=== PATIENT | male | born 1955 | race Two or more races ===

== ENCOUNTER 2021-10-13 09:52 | Emergency (ER) | payer OTHER ==
[~2021-10-13] VITALS: Ht 157.5 cm; Wt 72.6 kg
--- NOTE | 2021-10-13 10:01 | NUR ---
TO ER BED 6, [id number] C/O ABDOMINAL PAIN AND COUGH, TESTED POSITIVE AT URGENT CARE TODAY, SATTING AT 98% ROOM AIR, AAOX3, CONNECTED TO MONITOR, AWAITNG MD ORDERS
--- NOTE | 2021-10-13 10:17 | NUR ---
DR REYES AT BEDSIDE
--- NOTE | 2021-10-13 10:19 | NUR ---
URINE COLLECTED AND SENT TO LAB
--- NOTE | 2021-10-13 10:25 | NUR ---
IV LINE IS ESTABLISHED, BLOOD SPECIMEN COLLECTED AND SENT TO THE LAB. THE LINE IS SALINE LOCKED.
[2021-10-13] MEDS ORDERED: IV NS 0.9% 1,000 ML BAG IV ONE (10:30)
[2021-10-13] MEDS ORDERED: IV NS 0.9% 1,000 ML IV ONE (10:30)
--- NOTE | 2021-10-13 10:31 | NUR ---
covid swab done and sent to the lab
--- NOTE | 2021-10-13 10:38 | NUR ---
TAKEN TO CT
--- NOTE | 2021-10-13 10:46 | NUR ---
THE PATIENT IS BACK FROM CT
[2021-10-13 10:47] LABS: BASOPHILS # (AUTO) 0.1 K/uL (0.0-0.2); BASOPHILS % (AUTO) 0.5 % (0.0-2.0); EOSINOPHILS % (AUTO) 0.6 % (0.0-6.0); HEMATOCRIT 44 % (39-51); HEMOGLOBIN 14.1 g/dL (13.5-17.5); LYMPHOCYTES % (AUTO) 15.4 % (20.0-44.0); MEAN CORPUSCULAR HGB CONC 32 g/dl (31.0-36.0); MEAN CORPUSCULAR VOLUME 89 fL (80-96); MONOCYTES # (AUTO) 0.6 K/uL (0.1-1.30); NEUTROPHILS # (AUTO) 10.2 K/uL (1.8-8.9); NEUTROPHILS % (AUTO) 78.5 % (43.0-81.0); PLATELET COUNT (AUTO) 407 K/uL (150-450); RED BLOOD CELL COUNT(AUTO) 4.89 MIL/uL (4.5-6.0); WHITE BLOOD COUNT (AUTO) 12.9 K/uL (4.3-11.0)
[2021-10-13 10:56] LABS: BILIRUBIN,URINE SMALL (NEGATIVE); COLOR,URINE YELLOW (YELLOW); LEUKOCYTE ESTERASE ,URINE NEGATIVE (NEGATIVE); NITRITE, URINE NEGATIVE (NEGATIVE); PROTEIN,URINE 100 mg/dl (NEGATIVE); UGLUCOSE NEGATIVE (NEGATIVE); UROBILINOGEN,URINE 0.2 EU/dL (0.2)
[2021-10-13] MEDS ORDERED: KETOROLAC TROMETHAMINE 15 MG/ML VIAL ONE (10:56)
[2021-10-13] MEDS ORDERED: KETOROLAC TROMETHAMINE INJ 30 MG/ML VIAL IV ONE (11:00)
[2021-10-13 11:01] LABS: D-DIMER 1.11 mg/L(FEU (0.17-0.50)
[2021-10-13 11:06] LABS: BACTERIA,URINE None seen /HPF (None Seen); RBC,URINE 0-2 /HPF (0-2); SQUAMOUS EPITHELIAL CELL,UR Rare /HPF (None Seen); WBC,URINE NONE SEEN /HPF (0-3)
[2021-10-13 11:12] LABS: ALANINE AMINOTRANSFERASE 58 U/L (12-78); ALBUMIN 4.7 g/dL (3.4-5.0); ALKALINE PHOSPHATASE 112 U/L (46-116); ASPARTATE AMINOTRANSFERASE 54 U/L (15-37); BILIRUBIN,DIRECT 0.2 mg/dL (0.0-0.2); BILIRUBIN,TOTAL 0.6 mg/dL (0.2-1.0); CALCIUM, SERUM 10.7 mg/dL (8.5-10.1); CARBON DIOXIDE 21 mmol/L (21-32); CHLORIDE 97 mmol/L (98-107); CREATININE 2.7 mg/dL (0.6-1.3); GLUCOSE 223 mg/dL (74-106); LIPASE 232 U/L (73-393); POTASSIUM 4.7 mmol/L (3.5-5.1); SODIUM SERUM 132 mmol/L (136-145); TOTAL PROTEIN, SERUM 9.9 g/dL (6.4-8.2); UREA NITROGEN, BLOOD 49 mg/dL (7-18)
[2021-10-13 11:31] LABS: CREATINE KINASE, TOTAL 155 U/L (39-308); FERRITIN 54 ng/mL (8-388)
[2021-10-13 11:32] LABS: C-REACTIVE PROTEIN < 0.2 mg/dL (0.0-0.9)
[2021-10-13] MEDS ORDERED: FLUT16SP16 (11:32)
[2021-10-13] MEDS ORDERED: LATA2.5D15 EACHEYE (11:32)
[2021-10-13] MEDS ORDERED: LISI10TA29 PO (11:32)
[2021-10-13] MEDS ORDERED: ALBU8.5H8 IH (11:32)
[2021-10-13] MEDS ORDERED: POLY15DR40 EACHEYE (11:32)
[2021-10-13] MEDS ORDERED: PYRI-6 PO (11:32)
[2021-10-13] MEDS ORDERED: OMEP40CA21 PO (11:32)
[2021-10-13] MEDS ORDERED: INSU100I26 SQ (11:32)
[2021-10-13] MEDS ORDERED: METF-442 PO (11:32)
--- NOTE | 2021-10-13 12:00 | NUR ---
FOR DR SRINIVAS PEDERSON REPORT TO CALL [phone] (DR HORNER)
--- NOTE | 2021-10-13 12:01 | NUR ---
EDGER OPERATOR KALLIE [phone]
[2021-10-13 13:00] VITALS: BP 143/63
== END 2021-10-13 13:22 | disposition left against medical advice (07) ==
LOC: ER 09:57
DX: A41.89 Other specified sepsis (principal); N17.9 Acute kidney failure, unspecified; R00.0 Tachycardia, unspecified; Z20.822 Contact with and (suspected) exposure to COVID-19; K40.90 Unilateral inguinal hernia, without obstruction or gangrene, not specified as recurrent; R79.1 Abnormal coagulation profile; E87.1 Hypo-osmolality and hyponatremia; E87.8 Other disorders of electrolyte and fluid balance, not elsewhere classified; F17.200 Nicotine dependence, unspecified, uncomplicated; E11.65 Type 2 diabetes mellitus with hyperglycemia; Z79.84 Long term (current) use of oral hypoglycemic drugs
CPT/HCPCS: 36415; 71045; 74176; 80048; 80076; 81001; 82550; 82728; 83605; 83615; 83690; 83880; 84145; 84484; 85025; 85378; 85730; 86140; 87040; 87086; 87426; 93005; 96361; 96374; 99291; C9803; J1885; J7030; U0003